=== PATIENT | female | born 1940 | race Caucasian/White ===

== ENCOUNTER → 2018-02-08 | Outpatient (CLI) | payer MEDICARE, OTHER ==
[~2018-02-08] MED LIST: BIOT5TAB PO; CHOL500015 PO; CHROMIUM PO; DOXY25TA52 PO; IBUP200T64 PO; LEVO75TA PO; MAGNESIUM PO; MANGANESE PO; POTASSIUM PO; SELENIUM PO; VITAMIN B12 PO; WARF2.5T PO; WARF5TAB PO; ZINC PO; [UNRECOGNIZED DRUG - OTHER] PO; [UNRECOGNIZED DRUG - OTHER] PO
[2018-02-08 14:21] LABS: BASOPHILS # (AUTO) 0.04 x10^3/uL (0-0.1); BASOPHILS % (AUTO) 1 % (0-1); EOSINOPHILS # (AUTO) 0.08 x10^3/uL (0-0.4); EOSINOPHILS % (AUTO) 1 % (1-7); LYMPHOCYTES % (AUTO) 33 % (22-44); MD NO; MEAN CORPUSCULAR HEMOGLOBIN 30.9 pg (27.0-34.8); MEAN CORPUSCULAR HGB CONC 33.6 g/dL (32.4-35.8); MEAN CORPUSCULAR VOLUME 91.9 fL (80-100); MEAN PLATELET VOLUME 8.7 fL (7.4-10.4); MONOCYTES # (AUTO) 0.42 x10^3/uL (0.2-0.8); MONOCYTES % (AUTO) 5 % (2-9); NEUTROPHILS # (AUTO) 4.78 x10^3/uL (1.8-6.8); NEUTROPHILS % (AUTO) 60 % (42-75); PLATELET COUNT 238 x10^3/uL (130-400); RED BLOOD COUNT 4.48 x10^6/uL (3.82-5.3); RED CELL DISTRIBUTION WIDTH 14.1 % (9.6-15.2)
[2018-02-08 14:25] LABS: MICROSCOPIC NOT IND
[2018-02-08 14:29] LABS: CULTURE INDICATED? NO
[2018-02-08 14:31] LABS: INTERNATIONAL NORMALIZED RATIO 1.48 (0.93-1.1)
[2018-02-08 14:33] LABS: ANION GAP 8 mmol/L (5-15); CHLORIDE 105 mmol/L (98-107)
[2018-02-08 14:34] LABS: CREATININE 1.29 mg/dL (0.55-1.02)
[2018-02-08 14:37] LABS: PROTHROMBIN TIME 15.1 Seconds (9.6-11.5)
== END | disposition home or self-care (01) ==
LOC: STAR 13:11
PROVIDERS: ATTEND Neurological Surgery
DX: Z01.818 Encounter for other preprocedural examination (principal); M51.36 Other intervertebral disc degeneration, lumbar region
CPT/HCPCS: 36415; 71046; 80048; 81003; 85025; 85610; 85730; 93005

== ENCOUNTER 2018-02-17 07:02 | Inpatient (IN) | payer MEDICARE, OTHER ==
[2018-02-08 13:41] VITALS: BP 139/86
[2018-02-16 14:51] LABS: INTERNATIONAL NORMALIZED RATIO 1.16 (0.93-1.1); PROTHROMBIN TIME 11.9 Seconds (9.6-11.5)
[~2018-02-17] VITALS: Ht 165.1 cm; Wt 87.6 kg
[~2018-02-17 07:02] MED LIST changes: +BACITRACIN 50,000 UNIT ONE; +BUPIVACAINE 0.25% ONE; +BUPIVACAINE/PF 0.5% ONE; +EPINEPHRINE 1 MG/ML, 1ML ONE; +THROMBIN 5,000 UNIT VIAL TP ONE
[2018-02-17] MEDS ORDERED: PROPOFOL 100 ML ONE (09:02)
[2018-02-17] MEDS ORDERED: FENTANYL PF 250 MCG/5ML ONE (09:02)
[2018-02-17] MEDS ORDERED: ONDANSETRON 2MG/ML, 2ML ONE ×2 (09:12→11:52)
[2018-02-17] MEDS ORDERED: OxyconTIN ER 10 MG TAB.ER PO ONE (10:00)
[2018-02-17] MEDS ORDERED: GABAPENTIN 300 MG CAPSULE PO ONE (10:00)
[2018-02-17] MEDS ORDERED: ACETAMINOPHEN 500 MG TABLET PO ONE (10:00)
[2018-02-17] MEDS ORDERED: FAMOTIDINE 20 MG TABLET PO ONE (10:00)
[2018-02-17] MEDS ORDERED: DEXAMETHASONE 4 MG/ML, 1ML ONE ×2 (10:52→13:39)
[2018-02-17] MEDS ORDERED: CEFAZOLIN 1,000 MG ONE (10:56)
[2018-02-17] MEDS ORDERED: EPHEDRINE 50 MG/ML, 1ML ONE (10:59)
[2018-02-17] MEDS ORDERED: BUPIVACAINE/PF 0.5% INFIL ONE (11:16)
[2018-02-17] MEDS ORDERED: BUPIVACAINE/PF 0.25% EPIDPUSH ONE (11:17)
[2018-02-17] MEDS ORDERED: hydrALAzine 20 MG/ML, 1ML IV PRN (11:30)
[2018-02-17] MEDS ORDERED: HYDROmorphone 1 MG/ML, 1ML IV PRN (11:30)
[2018-02-17] MEDS ORDERED: LABETALOL 5MG/ML, 20ML IV PRN (11:30)
[2018-02-17] MEDS ORDERED: MEPERIDINE/PF 25MG/0.5ML IVPush PRN (11:30)
[2018-02-17] MEDS ORDERED: ONDANSETRON ODT 8 MG PO PRN (11:30)
[2018-02-17] MEDS ORDERED: PROMETHAZINE 12.5 MG SUPP PR PRN (11:30)
[2018-02-17] MEDS ORDERED: OXYcodone 5 MG/5 ML ORAL.SOL UDC PO PRN (11:30)
[2018-02-17] MEDS ORDERED: FENTANYL PF 100 MCG/2ML ONE ×2 (11:43→12:57)
[2018-02-17] MEDS ORDERED: FENTANYL PF 100 MCG/2ML EPIDPUSH ONE (11:53)
[2018-02-17] MEDS ORDERED: PROMETHAZINE 25 MG/ML, 1ML IM PRN (12:30)
[2018-02-17] MEDS ORDERED: BISACODYL 10 MG SUPP PR PRN (12:30)
[2018-02-17] MEDS ORDERED: morphine SULFATE 10 MG/ML, 1ML IVPush PRN (12:30)
[2018-02-17] MEDS: D5%-0.9% NACL+KCL 20MEQ 1,000 ML IV SCH (12:30)
[2018-02-17] MEDS ORDERED: HYDROcodone/APAP 5/325 TABLET PO PRN (12:30)
[2018-02-17] MEDS ORDERED: CYCLOBENZAPRINE 10 MG TABLET PO PRN (12:30)
[2018-02-17] MEDS ORDERED: ONDANSETRON 2MG/ML, 2ML IVPush PRN (12:30)
[2018-02-17] MEDS ORDERED: HYDROcodone/APAP 10/325 MG TABLET PO PRN (12:30)
[2018-02-17] MEDS ORDERED: SENNA/DOCUSATE TABLET PO PRN (12:30)
[2018-02-17] MEDS ORDERED: OXYcodone/APAP 5/325MG TABLET PO PRN (12:30)
[2018-02-17] MEDS ORDERED: PHARMACY MAY ADJ FOR RENAL FX MC PRN (12:30)
[2018-02-17] MEDS: MORPHINE SULFATE 4 MG/ML, 1ML IVPush PRN ×3 (12:35→13:40)
[2018-02-17] MEDS ORDERED: CYCLOBENZAPRINE 10 MG TABLET ONE (12:36)
[2018-02-17] MEDS ORDERED: MORPHINE SULFATE 4 MG/ML, 1ML ONE ×2 (12:36→13:44)
[2018-02-17] MEDS: FENTANYL PF 100 MCG/2ML IV PRN ×2 (12:45→13:30)
[2018-02-17 14:30] VITALS: BP 121/75
[2018-02-17 14:41] VITALS: BP 121/75
[2018-02-17] MEDS ORDERED: ROCURONIUM 10 MG/ML,10ML ONE (15:36)
[2018-02-17 18:25] VITALS: BP 127/80
[2018-02-17] MEDS: CEFAZOLIN PMX 1GM/50ML 50 ML IVPB SCH (19:21)
[2018-02-17] MEDS ORDERED: DOXYLAMINE 25MG TABLET PO SCH (21:00)
[2018-02-17] MEDS: SODIUM CHLORIDE FLUSH 10ML SYR IVF SCH (23:05)
[2018-02-18 00:46] VITALS: BP 105/48
[2018-02-18] MEDS: D5%-0.9% NACL+KCL 20MEQ 1,000 ML IV SCH (02:04)
[2018-02-18 03:33] VITALS: BP 102/53
[2018-02-18] MEDS: CEFAZOLIN PMX 1GM/50ML 50 ML IVPB SCH (03:42)
[2018-02-18] MEDS ORDERED: LEVOTHYROXINE 75 MCG TABLET PO SCH (06:00)
[2018-02-18] MEDS ORDERED: ENOXAPARIN 40 MG/0.4 ML SQ SCH (07:00)
[2018-02-18 07:32] VITALS: BP 102/70
[2018-02-18] MEDS: SODIUM CHLORIDE FLUSH 10ML SYR IVF SCH (08:24)
[2018-02-18] MEDS ORDERED: BIOTIN PO SCH (09:00)
[2018-02-18] MEDS ORDERED: CHOLECALCIFEROL 1,000 UNIT TABLET PO SCH (09:00)
[2018-02-18] MEDS ORDERED: CYCL5TAB PO (09:11)
[2018-02-18] MEDS ORDERED: TRAM50TA2 PO (09:14)
[2018-02-18] MEDS ORDERED: ENOX40SY4 SQ (09:15)
[2018-02-18 09:36] VITALS: BP 101/63
== END 2018-02-18 11:05 | disposition home or self-care (01) | DRG 516 ==
LOC: OUT 07:02 → ORIP 12:17 → 4NOR 14:28 → DCLOUNGE 02-18 10:52
PROVIDERS: ADMIT Neurological Surgery; ATTEND Neurological Surgery
PROC: 01NB0ZZ Release Lumbar Nerve, Open Approach (ICD-10-PCS; principal; 2018-02-17 11:30)
DX: M48.061 Spinal stenosis, lumbar region without neurogenic claudication (principal); D68.69 Other thrombophilia; M54.16 Radiculopathy, lumbar region; Z86.711 Personal history of pulmonary embolism; I10 Essential (primary) hypertension; E03.9 Hypothyroidism, unspecified; Z86.718 Personal history of other venous thrombosis and embolism
CPT/HCPCS: 36415; 72100; 82962; 85610; 85730; J0171; J0690; J1100; J1650; J2405; J2704; J3010; J3490; J3480